=== PATIENT | male | born 1965 | race Caucasian/White ===

== ENCOUNTER → 2018-01-08 11:32 | Outpatient (CLI) | payer BC, SELFPAY ==
--- NOTE | 2018-01-08 11:36 | CA_ITS ---
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 Left atrium is mildly enlarged, left ventricle is normal size, there is mild qualitative concentric left ventricular hypertrophy, visually estimated ejection fraction 50% with no regional wall motion abnormality. 2. The right atrium and right ventricle are normal size and contractility. 3. The aortic valve is minimally thickened and fibrosed. 4. The mitral and tricuspid valvular grossly normal. 5. The pulmonic valve is poorly present. 6. No significant pericardial effusion noted. DOPPLER INTERROGATION: Doppler interrogation of the aortic, mitral and tricuspid valvular presence of mild mitral and tricuspid regurgitation, tricuspid regurgitation jet velocity is inadequate for calculation of the right ventricular systolic pressure, grade 1 diastolic dysfunction seen without tissue Doppler evidence of raised left atrial pressure. CONCLUSION: 1. Normal left ventricular size, mild concentric left ventricular hypertrophy, visually estimated ejection fraction 50% with no regional wall motion abnormality, grade 1 diastolic dysfunction seen without tissue Doppler evidence of raised left atrial pressure. 2. Mild mitral and tricuspid regurgitation 3. No significant pericardial effusion noted.
== END ==
PROVIDERS: PCP Nurse Practitioner; Visit Provider Internal Medicine Cardiovascular Disease
DX: R06.00 Dyspnea, unspecified (principal); R07.9 Chest pain, unspecified
CPT/HCPCS: 93306

== ENCOUNTER → 2018-01-09 10:45 | Outpatient (CLI) | payer BC, SELFPAY ==
--- NOTE | 2018-01-09 10:48 | NM_ITS ---
History and Indications: Chest pain Procedure: Patient exercised on Antolin protocol 9 minutes, resting heart rate was 59 bpm resting blood pressure 156/91, with exercise maximum heart rate achieved was 1 51 bpm which is greater than 85% of the maximum predicted heart rate and a blood pressure was 190/80. Test was stopped due to shortness of breath patient denied any complained of chest pain. Patient has good exercise capacity achieved 10.1METS of workload on treadmill, the blood pressure response to exercise was adequate. Electrocardiogram: Resting electrocardiogram showed sinus rhythm possible inferior infarct age indeterminate, with exercise there is less than 1.5 ST segment depression noted from the baseline EKG. The EKG portion of the exercise Myoview is nondiagnostic due to baseline abnormal EKG. Cardiac stress and resting SPECT images: Cardiac stress and rest SPECT images were obtained using Tc 99 Myoview 30.7 mCi stress and 10.4 mCi at rest. Gated SPECT further analysis of segmental wall motion and calculation of the ejection fraction also done. Cardiac stress and rest images show a fixed defect involving the inferior wall with reduced contractility, there is likely secondary to prior myocardial scarring, computer derived ejection fraction 50% moderate inferior wall hypokinesis. Right ventricle is normal size and contractility. Conclusion: 1. The EKG portion of the exercise Myoview is nondiagnostic secondary to baseline abnormal EKG, patient has good exercise capacity achieved 10.1mets of workload on treadmill, the blood pressure response to exercise was adequate, test was started due to shortness of breath. 2. Scintigraphic evidence of myocardial scarring involving the inferior wall, computer derived ejection fraction is 50% with segmental wall motion abnormality described above, right ventricle is normal size and contractility. 3. Abnormal exercise Myoview study.
== END ==
PROVIDERS: Family Provider Family Medicine; PCP Nurse Practitioner; Visit Provider Internal Medicine
DX: R06.00 Dyspnea, unspecified (principal); R07.9 Chest pain, unspecified
CPT/HCPCS: 78452; 93017; A9502

== ENCOUNTER 2023-07-08 19:40 | Emergency (ER) | payer BC, SELFPAY ==
--- NOTE | 2023-07-08 | ECG_ITS ---
APPROVED REPORT Exam: Resting ECG HR:67 bpm ECG Measurements Heart Rate 67 AXES WY 147 P 71 QRSd 108 QRS 64 QT 379 T 24 QTc 395 Conclusion SINUS RHYTHM BORDERLINE ECG UNCONFIRMED REPORT Electronically signed by : Jerel Hadley, 07/08/2023 22:21:33
--- NOTE | 2023-07-08 19:49 | ED_ITS ---
<Statement entered by Graeme Hadley MD - 07/08/23 22:20> I was consulted by the PAUL, and we discussed the complexity of the problems being addressed. I approved the treatment and management plan for this patient's care in the emergency department, thus performing a substantive portion of the medical decision making. Graeme Hadley MD, MAGED, FACEP Discharge Plan Disposition Patient Disposition: Home, Self-Care Condition: Good Prescriptions Prescriptions: No Action No Known Home Medications Referrals Follow up/Referrals: Jermain Carlisle MD [Staff Physician] - See instructions Garth Shaw MD [Staff Physician] - See instructions Clinical Impressions Clinical Impression: Chest pain Discharge ED Provider: Graeme Hadley General Adult HPI General Chief complaint: Chest Pain Stated complaint: Chest pain Time Seen by Provider: 07/08/23 19:49 History of Present Illness HPI narrative: Patient presents for 24 to 36 hours of left chest pain along with associated paresthesia of the sensation of numbness and cold and both his left upper and lower extremity. Patient denies any provoking event. Patient denies altered sensorium nausea vomiting diarrhea indigestion fever chills hemoptysis hematochezia melena neck pain headache. Patient reports that his symptoms are somewhat worse with deep breathing but no relieving factors. Patient does have a history of a previous heart cath that showed a scar on chemical stress test however cardiac cath and echo did not find any abnormalities. Related Data Home Medications Medication Instructions Recorded Confirmed No Known Home Medications 07/08/23 07/08/23 Allergies Allergy/AdvReac Type Severity Reaction Status Date / Time No Known Allergies Allergy Verified 01/08/18 10:27 [facility] Disclaimer: The information contained in this section may have been updated after the patient was seen, as this information can be updated by other users. Social History Smoking Status: Unknown if ever smoked second hand exposure: No alcohol intake: current substance use type: denies use current occupational status: employed Travel in the last 8 weeks: None household members: none housing: house current occupational exposures/hazards: Yes ROS Obtained: Yes Systems reviewed as appropriate & no additional complaints except as documented Physical Exam General General appearance: alert and in no apparent distress Head Head exam: atraumatic and normocephalic Eye Eye exam: Present normal appearance, PERRL and EOMI ENT ENT exam: Present normal exam and normal oropharynx Neck Neck exam: Present normal inspection, full ROM and trachea midline; Absent tenderness or lymphadenopathy Chest Chest inspection: Present normal inspection and symmetric chest wall rise; Absent tenderness Respiratory Respiratory exam: Present normal lung sounds bilaterally; Absent respiratory distress, wheezes or accessory muscle use Cardiovascular Cardiovascular exam: Present regular rate, normal rhythm, normal heart sounds, +S1 and +S2 Abdominal Exam Abdominal exam: Present soft; Absent tenderness, guarding, rebound or rigidity Extremities Exam Extremities exam: Present normal inspection and full ROM; Absent tenderness Back Exam Back exam: Present normal inspection and full ROM; Absent tenderness Neurological Exam Neurological exam: Present alert, oriented X3, CN II-XII intact, normal gait and reflexes normal; Absent motor sensory deficit Psychiatric Psychiatric exam: Present normal affect and normal mood Skin Skin exam: Present warm, dry and intact Medical Decision Making Medical Records Medical records reviewed: Yes I reviewed the patient's medical records. Ismael Inquiry Pt receiving controlled substance: No Vital Signs: 07/08/23 19:50 07/08/23 20:00 07/08/23 20:44 Temperature 98.2 F Temperature Source Oral Pulse Rate 66 73 Pulse Rate [Right Brachial] 73 Respiratory Rate 17 18 Blood Pressure 160/97 H Blood Pressure [Right Arm] 177/103 H Blood Pressure Mean 129 Blood Pressure Mean [Right Arm] 127 Blood Pressure Source [Right Arm] Automatic Cuff Blood Pressure Position [Right Arm] Sitting 02 Sat by Pulse Oximetry 98 97 Oxygen Delivery Method Room Air Room Air 07/08/23 20:49 07/08/23 21:00 Temperature Temperature Source Pulse Rate 73 67 Pulse Rate [Right Brachial] Respiratory Rate 15 16 Blood Pressure 162/89 H 145/89 H Blood Pressure [Right Arm] Blood Pressure Mean 115 107 Blood Pressure Mean [Right Arm] Blood Pressure Source [Right Arm] Blood Pressure Position [Right Arm] 02 Sat by Pulse Oximetry 99 99 Oxygen Delivery Method Room Air Room Air Lab Data Lab results reviewed: Yes I reviewed the patient's lab results. Lab Results 07/08/23 19:40: WBC 5.6, RBC 4.93, Hgb 14.7, Hct 44.9, MCV 91.1, MCH 29.8, MCHC 32.7, RDW 13.5, Plt Count 196, MPV 9.1, Neut % (Auto) 49.2, Lymph % (Auto) 39.7, [place] % (Auto) 6.8, Eos % (Auto) 3.1, Baso % (Auto) 1.2, Neut # (Auto) 2.7, Lymph # (Auto) 2.2, [place] # (Auto) 0.4, Eos # (Auto) 0.2, Baso # (Auto) 0.1, PT 11.1, INR 1.03, D-Dimer 0.30, Sodium 141, Potassium 3.6, Chloride 108 H, Carbon Dioxide 28, Anion Gap 8.6, BUN 12, Creatinine 0.90, Estimated Creat Clear 161, Estimated GFR 88, Est GFR ( Amer) 106, Glucose 105 H, Calcium 9.3, Magnesium 1.8, Total Bilirubin 0.3, AST 33, ALT 27, Alkaline Phosphatase 78, Troponin I < 0.01, NT-Pro-B Natriuret Pep 72.1, Total Protein 6.9, Albumin 4.3, Globulin 2.6, Albumin/Globulin Ratio 1.7, TSH 7.61 H 07/08/23 19:40 07/08/23 19:40 Orders (Tests/Meds): ED MEDICATIONS Generic Name Dose Route Start Last Admin Trade Name Freq PRN Reason Stop Dose Admin Sodium Chloride 10 ml 07/08/23 21:37 Sodium Chloride 0.9% 10ml Vial IV 08/07/23 21:36 NEEDED PRN to Dilute Lorazepam inj Discontinued Medications Generic Name Dose Route Start Last Admin Trade Name Freq PRN Reason Stop Dose Admin Aspirin 324 mg 07/08/23 19:57 07/08/23 20:08 Aspirin 81mg Chewable Tablet PO 07/08/23 19:58 324 mg ONCE ONE Administration Diphenhydramine HCl 50 mg 07/08/23 21:37 07/08/23 21:46 Diphenhydramine 50mg/Ml Vial IV 07/08/23 21:38 50 mg ONCE ONE Administration Iopamidol 180 ml 07/08/23 20:50 07/08/23 20:51 Iopamidol-370 (76%);100ml Bottle IV 07/08/23 20:51 180 ml ONCE ONE Administration Lorazepam 0.5 mg 07/08/23 21:37 07/08/23 21:46 Lorazepam 2mg/Ml Vial IV 07/08/23 21:38 0.5 mg ONCE ONE Administration Sodium Chloride 10 ml 07/08/23 20:50 07/08/23 20:51 Sodium Chloride 0.9% 10ml Syr (Rad Only) IV 07/08/23 20:51 10 ml ONCE ONE Administration ORDERS Category Date Time Status CT angio chest - dissection Stat Cat Scan 07/08/23 19:[address] angio head Stat Cat Scan 07/08/23 19:[address] angio neck Stat Cat Scan 07/08/23 19:[address] head/brain wo con Stat Cat Scan 07/08/23 19:49 Completed Chest XR -- portable [XR chest portable] Stat Exams 07/08/23 19:57 Completed POCUS Point of Care (ER Only) Stat Exams 07/08/23 19:49 Taken BNP [NT Pro Brain Natriuretic Pep.] Stat Lab 07/08/23 19:40 Completed CBC w/Auto Diff [Complete Blood Count Auto Diff] Stat Lab 07/08/23 19:40 Completed CMP [Comprehensive Metabolic Panel] Stat Lab 07/08/23 19:40 Completed D-Dimer Stat Lab 07/08/23 19:40 Completed INR [Prothrombin Time INR] Stat Lab 07/08/23 19:40 Completed Lactic Acid Stat Lab 07/08/23 19:58 Ordered Magnesium Stat Lab 07/08/23 19:40 Completed Rapid PCR Covid and Flu A/B Stat Lab 07/08/23 19:58 Ordered TSH [Thyroid Stimulating Hormone] Stat Lab 07/08/23 19:40 Completed Trop I [Troponin I] Stat Lab 07/08/23 19:40 Completed Troponin I Q3H Lab 07/08/23 23:00 Ordered Troponin I Q3H Lab 07/09/23 02:00 Ordered UA [Urinalysis and Microscopic] Stat Lab 07/08/23 19:58 Ordered HEART Score History (anamnesis): Moderately suspicious ECG: Non-specific disturbance Age: 45-65 years Risk factors: 1-2 risk factors Troponin: </= normal limit HEART Score: 4 Medical Decision Narrative: In summary patient is a 57-year-old male who presents to the emergency department for evaluation of chest pain and left-sided paresthesia. Patient is hypertensive slightly tachycardic upon arrival, but afebrile satting at greater than 94% on room air.. Physical exam is unremarkable and objectively his sensory exam is normal. Peripheral pulses are normal.. Differential diagnosis includes ACS versus aortic dissection versus other cardiovascular event versus stroke versus spinal stenosis etc. Initial workup will be conducted with hematologic labs, twelve-lead EKG, plain film chest x-ray, CT without contrast of the head and CTA of the head and neck and chest. Initial interventions include Toradol Tylenol and chewable aspirin. Initial workup reviewed by me shows that his hematologic labs are nonactionable including a undetectable troponin. My informal review of his imaging shows no acute processes. EKG from today does show evidence of previous [place] with Q waves and that is different from his last available EKG which was done in 2018 which was normal. Upon repeat evaluation patient does report some improvement subjectively of his chest pain however the cold sensation that he is experiencing is still occurring intermittently.. Given this appropriate discharge with close follow-up with cardiology. Patient verbalized understanding and agreement. Critical Care Critical Care Time Critical Care Time: No Total Time Total Critical Care Time: 30
--- NOTE | 2023-07-08 19:49 | CT_ITS ---
PROCEDURE INFORMATION: Exam: CTA Chest With Contrast Exam date and time: 07/08/2023 8:39 PM Age: 57 years old Clinical indication: Pain; Chest pressure; Additional info: Chest pain, paresthesia TECHNIQUE: Imaging protocol: Computed tomographic angiography of the chest with contrast. Exam focused on the arteries. 3D rendering (Not supervised by radiologist): MIP and/or 3D reconstructed images were created by the technologist. Total images: 373 Radiation optimization: All CT scans at this facility use at least one of these dose optimization techniques: automated exposure control; mA and/or kV adjustment per patient size (includes targeted exams where dose is matched to clinical indication); or iterative reconstruction. Contrast material: ISOVUE; Contrast volume: 90 ml; Contrast route: INTRAVENOUS (IV); COMPARISON: CR XR CHEST PORTABLE 07/08/2023 8:38 PM FINDINGS: Pulmonary arteries: Adequate contrast opacification of the pulmonary arteries. Cardiac pulsation artifact within the pulmonary outflow tract. Mild limitations imposed by respiratory motion. No convincing evidence for main or segmental pulmonary emboli. Distal branch evaluation limited.. Aorta: No thoracic aortic aneurysm, dissection, or traumatic injury. Cardiac pulsation artifact in the ascending aorta. Lungs: Trachea and main bronchi are patent. Densely calcified left upper lobe granuloma. Lungs are clear and adequately expanded. No concerning infiltrate or airspace consolidation. 4 mm juxtapleural nodule right minor fissure, axial image 38. Additional 3 mm juxtapleural right lower lobe nodule, axial image 42. Pleural spaces: Unremarkable. No pneumothorax. No pleural effusion. Heart: Normal heart size. 3.8 x 2.0 x 4.4 cm left pericardial cyst. No pericardial effusion. Coronary arteries: No significant coronary artery calcifications. Mediastinal space: Mediastinal lipomatosis. No mediastinal mass or hematoma. Lymph nodes: No mediastinal or hilar lymphadenopathy. Calcified left hilar lymph node. Spleen: Calcified splenic granuloma. Intraperitoneal space: No acute process in the upper abdomen. Bones/joints: Moderate degenerative changes mid lower thoracic spine. Minor loss vertebral body height at T11 either remote or developmental. Soft tissues: Unremarkable. IMPRESSION: 1. No acute intrathoracic process. Specifically, no acute main or proximal segmental pulmonary emboli. 2. Remote calcified granulomatous disease. 3. Left pericardial cyst. 4. Noncalcified juxtapleural micronodules right lung. Recommend follow-up CT Chest in 6-12 months. (References: Jose) REFERENCES: 1. Gerardo Jasmine, et al. Guidelines for Management of Incidental Pulmonary Nodules Detected on CT Images: From the Fleischner Society 2017. Radiology. 2017;284(1):228-243. 2. Macy Bedolla, et al. Updated Fleischner Society Guidelines for Managing Incidental Pulmonary Nodules: Common Questions and Challenging Scenarios. Radiographics. 2018;38(5):2677-9588.
--- NOTE | 2023-07-08 19:49 | CT_ITS ---
PROCEDURE INFORMATION: Exam: CTA Head With Contrast, Arteriography Exam date and time: 07/08/2023 8:34 PM Age: 57 years old Clinical indication: Other: Paresthesia left side; Additional info: Chest pain, paresthesia TECHNIQUE: Imaging protocol: Computed tomographic angiography of the head with contrast. Exam focused on the arteries. 3D rendering (Not supervised by radiologist): MIP and/or 3D reconstructed images were created by the technologist. Radiation optimization: All CT scans at this facility use at least one of these dose optimization techniques: automated exposure control; mA and/or kV adjustment per patient size (includes targeted exams where dose is matched to clinical indication); or iterative reconstruction. Contrast material: ISOVUE; Contrast volume: 90 ml; Contrast route: INTRAVENOUS (IV); COMPARISON: CT HEAD/BRAIN WO CON 07/08/2023 8:34 PM FINDINGS: ANTERIOR CIRCULATION: Right internal carotid artery: Intracranial segment is patent with no significant stenosis. No aneurysm. Right middle cerebral artery: No occlusion or significant stenosis. No aneurysm. Right anterior cerebral artery: No occlusion or significant stenosis. No aneurysm. Left internal carotid artery: Intracranial segment is patent with no significant stenosis. No aneurysm. Left middle cerebral artery: No occlusion or significant stenosis. No aneurysm. Left anterior cerebral artery: No occlusion or significant stenosis. No aneurysm. POSTERIOR CIRCULATION: Right vertebral artery: No occlusion or significant stenosis. No aneurysm. Left vertebral artery: No occlusion or significant stenosis. No aneurysm. Basilar artery: No occlusion or significant stenosis. No aneurysm. Right posterior cerebral artery: origin. No occlusion or significant stenosis. No aneurysm. Left posterior cerebral artery: No occlusion or significant stenosis. No aneurysm. Brain: No definite mass, mass effect, or midline shift. Cerebral ventricles: No ventriculomegaly. Bones/joints: Unremarkable. No acute fracture. Soft tissues: Unremarkable. IMPRESSION: No large vessel stenosis or occlusion.
--- NOTE | 2023-07-08 19:49 | CT_ITS ---
PROCEDURE INFORMATION: Exam: CT Head Without Contrast Exam date and time: 07/08/2023 8:34 PM Age: 57 years old Clinical indication: Other: Paresthesia left side; Additional info: Chest pain, paresthesia TECHNIQUE: Imaging protocol: Computed tomography of the head without contrast. Radiation optimization: All CT scans at this facility use at least one of these dose optimization techniques: automated exposure control; mA and/or kV adjustment per patient size (includes targeted exams where dose is matched to clinical indication); or iterative reconstruction. COMPARISON: CT ANGIO HEAD 07/08/2023 8:34 PM FINDINGS: Brain: No acute intracranial hemorrhage, midline shift or mass effect. Cerebral ventricles: No ventriculomegaly. Paranasal sinuses: Bilateral maxillary sinus mucosal thickening. No fluid levels. Mastoid air cells: Visualized mastoid air cells are well aerated. Bones/joints: Unremarkable. No acute fracture. Soft tissues: Unremarkable. IMPRESSION: No acute intracranial findings.
[2023-07-08 19:50] VITALS: BP 177/103; PULSE 73; RESP 17; TEMP 36.8; O2SAT 98; BMI 34.7
--- NOTE | 2023-07-08 19:51 | CT_ITS ---
PROCEDURE INFORMATION: Exam: CTA Neck With Contrast Exam date and time: 07/08/2023 8:34 PM Age: 57 years old Clinical indication: Other: Paresthesia left side; Additional info: Chest pain, paresthesia TECHNIQUE: Imaging protocol: Computed tomographic angiography of the neck with contrast. Exam focused on the cervical segments of the vasculature. 3D rendering (Not supervised by radiologist): MIP and/or 3D reconstructed images were created by the technologist. Radiation optimization: All CT scans at this facility use at least one of these dose optimization techniques: automated exposure control; mA and/or kV adjustment per patient size (includes targeted exams where dose is matched to clinical indication); or iterative reconstruction. Contrast material: ISOVUE; Contrast volume: 90 ml; Contrast route: INTRAVENOUS (IV); COMPARISON: CT ANGIO HEAD 07/08/2023 8:34 PM FINDINGS: Right common carotid artery: No stenosis. No dissection or occlusion. Right internal carotid artery: No stenosis of the extracranial segment. No dissection or occlusion. Right external carotid artery: No occlusion or stenosis of the origin. Left common carotid artery: No stenosis. No dissection or occlusion. Left internal carotid artery: Mild atherosclerotic narrowing of the proximal extracranial segment. No dissection or occlusion. Left external carotid artery: No occlusion or stenosis of the origin. Right vertebral artery: No stenosis. No dissection or occlusion. Left vertebral artery: No stenosis. No dissection or occlusion. Soft tissues: Normal. No significant soft tissue swelling. Bones/joints: No acute fracture. Lungs: 7.5 mm left upper lobe calcified granuloma. IMPRESSION: Mild less than 50% stenosis of the left proximal internal carotid artery. REFERENCES: NASCET CRITERIA. The degree of stenosis in the cervical segment of the internal carotid artery is based on NASCET criteria. Normal is no stenosis. Mild is less than 50% stenosis. Moderate is 50-69% stenosis. Severe is 70% to 99% stenosis. Total occlusion is no detectable patent lumen.
--- NOTE | 2023-07-08 19:57 | XR_ITS ---
PROCEDURE INFORMATION: Exam: XR Chest Exam date and time: 07/08/2023 8:38 PM Age: 57 years old Clinical indication: Pain; Chest pressure; Additional info: Chest pain, paresthesia TECHNIQUE: Imaging protocol: Radiologic exam of the chest. Views: 1 view. Total images: 1 COMPARISON: CT ANGIO NECK 07/08/2023 8:34 PM FINDINGS: Tubes, catheters and devices: EKG leads are present. Lungs: Unremarkable. No consolidation. No pulmonary vascular congestion or edema. Pleural spaces: Unremarkable. No pleural effusion. No pneumothorax. Heart/Mediastinum: Prominent cardiac silhouette likely magnified by portable AP technique. No mediastinal widening. Bones/joints: Unremarkable. Other findings: Lordotic positioning. IMPRESSION: No radiographically acute cardiopulmonary process.
[2023-07-08 20:00] VITALS: BP 160/97; PULSE 66; RESP 18; O2SAT 97
[2023-07-08] MEDS: ASPIRIN 81MG CHEWABLE TABLET 324 MG PO (20:08)
[2023-07-08 20:11] LABS: Basophils # 0.1 K/mm3 (0-0.2); Basophils % 1.2 % (0.1-2.0); Eosinophils # 0.2 K/mm3 (0.0-0.4); Eosinophils % 3.1 % (0.1-12.0); Hematocrit 44.9 % (42.0-52.0); Hemoglobin 14.7 g/dL (14.1-18.0); Lymphocytes # 2.2 K/mm3 (0.7-4.5); Lymphocytes % 39.7 % (10-50); Mean Corpuscular HGB Conc 32.7 g/dL (31.8-35.4); Mean Corpuscular Hemoglobin 29.8 pg (27.0-31.2); Mean Corpuscular Volume 91.1 fl (80-94); Mean Platelet Volume 9.1 fl (7.4-10.4); Monocytes # 0.4 K/mm3 (0.1-1.0); Monocytes % 6.8 % (1.7-9.3); Neutrophils # 2.7 K/mm3 (1.8-7.8); Neutrophils % 49.2 % (37.0-80.0); Platelet Count 196 K/mm3 (142-424); Red Blood Count 4.93 M/mm3 (4.60-6.20); Red Cell Distribution Width 13.5 % (11.5-17.5); White Blood Count 5.6 K/mm3 (4.8-10.8)
--- NOTE | 2023-07-08 20:11 | PC.NURSE ---
Pt assisted to bathroom at this time
[2023-07-08 20:14] LABS: Alanine Aminotransferase 27 U/L (12-78); Albumin Level 4.3 g/dl (3.5-5.0); Albumin/Globulin Ratio 1.7 (1.1-1.8); Alkaline Phosphatase 78 U/L (38-126); Anion Gap 8.6 mEq/L (5-15); Aspartate Amino Transferase 33 U/L (17-59); Bilirubin,Total 0.3 mg/dl (0.2-1.3); Blood Urea Nitrogen 12 mg/dl (9-20); Calcium 9.3 mg/dl (8.4-10.2); Carbon Dioxide 28 mmol/L (22.0-30.0); Chloride 108 mmol/L (98-107); Creatinine Clearance Estimated 161 mL/min (50-200); Estimated Glomerular Filt Rate 88 ml/min (>60); GFR (African American) 106 ML/MIN (>60); Globulin 2.6 g/dL (1.3-3.2); Glucose 105 mg/dl (74-100); Magnesium 1.8 mg/dl (1.6-2.3); Potassium 3.6 mmoL/L (3.5-5.1); Sodium 141 mmol/L (136-145); Total Protein,Serum 6.9 g/dl (6.3-8.2)
[2023-07-08 20:19] LABS: INR 1.03 (0.9-1.1); Prothrombin Time 11.1 seconds (10.1-12.5)
[2023-07-08 20:27] LABS: NT Pro Brain Natriuretic Pep. 72.1 pg/mL (0-125)
[2023-07-08 20:30] LABS: Troponin I < 0.01 ng/ml (0.00-0.034)
[2023-07-08 20:44] VITALS: PULSE 73
[2023-07-08 20:45] LABS: Thyroid Stimulating Hormone 7.61 uIU/mL (0.465-4.68)
[2023-07-08 20:49] VITALS: BP 162/89; PULSE 73; RESP 15; O2SAT 99
[2023-07-08] MEDS: SODIUM CHLORIDE 0.9% 10ML SYR (RAD ONLY) 10 ML IV (20:51)
[2023-07-08] MEDS: IOPAMIDOL-370 (76%);100ML BOTTLE 180 ML IV (20:51)
[2023-07-08 21:00] VITALS: BP 145/89; PULSE 67; RESP 16; O2SAT 99
--- NOTE | 2023-07-08 21:16 | PC.NURSE ---
Pt refuses the Covid swab, Don aware
[2023-07-08] MEDS: LORazepam 2MG/ML VIAL 0.5 MG IV (21:46)
[2023-07-08] MEDS: diphenhydrAMINE 50MG/ML VIAL 50 MG IV (21:46)
[2023-07-08 22:13] VITALS: BP 152/94; PULSE 77; RESP 15; TEMP 36.7; O2SAT 97
[2023-07-08 22:13] LABS: Lactic Acid 1.1 mmol/L (0.7-2.1)
--- NOTE | 2023-07-09 03:27 | PC.NURSE ---
reviewed patient's lactic acid 1.1. no new orders needed. will complete the notification on the list
== END 2023-07-08 22:15 | disposition home or self-care (01) ==
PROVIDERS: Physician Assistant; Emergency Provider Student in an Organized Health Care Education/Training Program; PCP Family Medicine
DX: R07.9 Chest pain, unspecified (principal); R07.1 Chest pain on breathing
CPT/HCPCS: 70450; 70496; 70498; 71045; 71275; 80053; 83605; 83735; 83880; 84443; 84484; 85025; 85378; 85610; 93005; 96374; 96375; 99285; Q9967

== ENCOUNTER 2023-07-15 14:22 | Outpatient (CLI) | payer BC, SELFPAY ==
[2023-07-15 15:03] LABS: Basophils % 0.6 % (0.1-2.0); Eosinophils # 0.1 K/mm3 (0.0-0.4); Eosinophils % 1.6 % (0.1-12.0); Hematocrit 44.6 % (42.0-52.0); Hemoglobin 14.8 g/dL (14.1-18.0); Lymphocytes % 31.8 % (10-50); Mean Corpuscular HGB Conc 33.2 g/dL (31.8-35.4); Mean Corpuscular Volume 90.5 fl (80-94); Mean Platelet Volume 8.7 fl (7.4-10.4); Monocytes # 0.4 K/mm3 (0.1-1.0); Monocytes % 6.4 % (1.7-9.3); Neutrophils # 3.8 K/mm3 (1.8-7.8); Neutrophils % 59.6 % (37.0-80.0); Platelet Count 191 K/mm3 (142-424); Red Blood Count 4.93 M/mm3 (4.60-6.20); Red Cell Distribution Width 13.6 % (11.5-17.5); White Blood Count 6.4 K/mm3 (4.8-10.8)
[2023-07-15 15:23] LABS: Alanine Aminotransferase 26 U/L (12-78); Albumin Level 4.5 g/dl (3.5-5.0); Alkaline Phosphatase 85 U/L (38-126); Anion Gap 11.4 mEq/L (5-15); Aspartate Amino Transferase 28 U/L (17-59); Bilirubin,Direct 0.1 mg/dl (0.0-0.4); Bilirubin,Indirect 0.5 mg/dL (0.0-0.9); Bilirubin,Total 0.6 mg/dl (0.2-1.3); Bilirubin,Unconjugated 0.5 mg/dL (0.0-1.1); Blood Urea Nitrogen 17 mg/dl (9-20); Calcium 9.9 mg/dl (8.4-10.2); Carbon Dioxide 27 mmol/L (22.0-30.0); Chloride 109 mmol/L (98-107); Chol/HDL Ratio 3.5 (1-3.5); Cholesterol 245 mg/dl (140-200); Estimated Glomerular Filt Rate 69 ml/min (>60); GFR (African American) 84 ML/MIN (>60); Glucose 95 mg/dl (74-100); HDL Cholesterol 70 mg/dl (40-60); Potassium 4.4 mmoL/L (3.5-5.1); Sodium 143 mmol/L (136-145); Triglycerides 134 mg/dl (30-150); VLDL Cholesterol 27 mg/dL (0-40)
[2023-07-15 15:34] LABS: Direct LDL Cholesterol 136.74 mg/dL (100-129)
[2023-07-15 15:39] LABS: Free T4 (Free Thyroxine) 0.84 ng/dl (0.78-2.19)
[2023-07-15 15:55] LABS: T4 (Thyroxine) 5.3 ug/dl (5.53-11.0)
[2023-07-15 16:08] LABS: Thyroid Stimulating Hormone 5.82 uIU/mL (0.465-4.68)
[2023-07-16 05:48] LABS: Triiodothryronine (T3) Uptake 38 % (23.5-40.5)
[2023-07-16 10:31] LABS: Thyroid Peroxidase Antibodies 200 IU/mL (0-34); Triiodothyronine (T3) Free 2.5 pg/mL (2.0-4.4)
[2023-07-17 10:09] LABS: Thyroglobulin IMA CHARGE YES; Thyroglobulin Level <1.0 IU/mL (0.0-0.9)
[2023-07-17 18:05] LABS: Thyroid Stimulating Immunoglob <0.10 IU/L (0.00-0.55)
[2023-07-20 10:32] LABS: Triiodothyronine (T3) Reverse 17.2
== END 2023-07-15 23:59 | disposition home or self-care (01) ==
LOC: LAB 14:23
PROVIDERS: PCP Family Medicine; Visit Provider Internal Medicine
DX: R06.00 Dyspnea, unspecified (principal); R07.9 Chest pain, unspecified; R94.31 Abnormal electrocardiogram [ECG] [EKG]; R20.0 Anesthesia of skin; R94.6 Abnormal results of thyroid function studies
CPT/HCPCS: 36415; 80048; 80061; 80076; 84436; 84439; 84443; 84445; 84479; 84481; 84482; 85025; 86376; 86800

== ENCOUNTER 2023-07-22 13:29 | Outpatient (CLI) | payer BC, SELFPAY ==
--- NOTE | 2023-07-22 13:29 | US_ITS ---
FINAL REPORT CLINICAL HISTORY: cp/dyspnea/abnl ecg/left side numbness FINDINGS: THYROID ULTRASOUND: The thyroid gland is diffusely heterogeneous. The right lobe of the thyroid measures 4.6 x 1.9 x 1.4 cm in size. There are multiple nodules present in the right lobe of the thyroid, the largest a 7 mm right hypoechoic solid complex nodule consistent with a TI-RADS 4 category nodule. An adjacent nodule is a TI-RADS 3 category nodule. All of the nodules in the right lobe of the thyroid are equal to or less than 7 mm in size. The left lobe of the thyroid gland measures 4.7 x 1.9 x 1.6 cm in size. The left lobe of the thyroid is also heterogeneous, but no focal nodules are identified. The isthmus of the thyroid measures 5.5 mm in thickness. IMPRESSION: Multiple right-sided thyroid nodules as described above, TI-RADS category 3 and 4 nodules. By TI-RADS criteria, no follow-up is recommended at this time secondary to size. The thyroid gland is generally heterogeneous throughout. Reviewed, Interpreted and Dictated by Nolan Perez MD Transcribed by Malina Menjivar Authenticated and [facility]
== END 2023-07-22 23:59 | disposition home or self-care (01) ==
LOC: RAD 13:29
PROVIDERS: PCP Family Medicine; Visit Provider Internal Medicine
DX: E04.1 Nontoxic single thyroid nodule (principal); R07.9 Chest pain, unspecified; R94.31 Abnormal electrocardiogram [ECG] [EKG]; R20.0 Anesthesia of skin; R06.00 Dyspnea, unspecified
CPT/HCPCS: 76536

== ENCOUNTER 2023-07-28 10:54 | Outpatient (CLI) | payer BC, SELFPAY ==
--- NOTE | 2023-07-28 10:54 | NM_ITS ---
APPROVED REPORT Exam: Nuclear Stress Test Indication: FM PELON C.PTigist, SOB Patient Location: Outpatient Stress Tech: Evelyn Mustafa NM Tech:Marguerite Sorto, ARRT, RT (R)(N) Ht: 6 ft 2 in Wt: 270 lbs HR: 68 bpm BP: 124/82 mmHg BSA: 2.47 m2 TID: 1.27 BMI: 34.6 History: Mary PAYNEPTigist, SOB Procedure: Patient received 0.4 mg of intravenous Lexiscan, resting heart rate 68 bpm, resting blood pressure 124/82 mmHg, with Lexiscan maximum heart rate achieved was 105 bpm which is % of the maximum predicted heart rate and blood pressure was 146/89 mmHg. With Lexiscan, patient denied any complaint of chest pain. Cardiac Stress and Resting SPECT Images: Cardiac Stress and Resting SPECT images were obtained using technetium 99m Myoview 30.7 mCi stress and 10.43 mCi at rest. Resting and stress imaging in supine and prone positions demonstrate no definite evidence of focal fixed or reversible perfusion defects. There is increased transient ischemic dilatation ratio (TID 1.27), suggestive of possible multivessel disease or balanced ischemia. Gated imaging demonstrates mild reduction in global LV systolic function. LVEF is calculated at 47%. Conclusion: No definite evidence of focal fixed or reversible perfusion defects. There is increased transient ischemic dilatation ratio (TID 1.27), suggestive of possible multivessel disease or balanced ischemia. Gated imaging demonstrates mild reduction in global LV systolic function. LVEF is calculated at 47%. Electronically signed by : Shirley Álvarez MD 07/29/2023 13:16:18
--- NOTE | 2023-07-28 12:05 | CA_ITS ---
APPROVED REPORT EXAM: Comprehensive 2D, Doppler, and color-flow Echocardiogram Cane Burner: Batool Bonilla RVT Ht: 6 ft 2 in Wt: 273lbs BSA: 2.48 BP: 135/93 mmHg Indications: DYSPENA,CP,ABN EKG TDS-PT BODY HABITUS 2D Dimensions LA Volume 64.60 mL LA Volume Index 26.05 mL/m2 (M/F) 16-34 M-Mode Dimensions RVDd 3.66 cm (0.9-2.6) LA Diam 4.28 cm (1.9-4.0) LVDd 6.00 cm (3.5-5.7) LVDs 3.89 cm (3.5-5.7) IVSd 1.08 cm (0.6-1.1) PWd 0.66 cm (0.6-1.1) EF (Teich) 63.60% FS 35.20% EDV (Teich) 180.00 mL ESV (Teich) 65.50 mL LV Diastology E Decel Time 150 (160-240 msec) E/A Ratio 1.0 Aortic Valve DIONNE Index 2.02 cm2/m2 AoV Peak Binu. 138.0 (50-130 cm/s) AO Peak GR. 7.60 mmHg AO Mean GR. 3.90 (<5 mmHg) AO VTI 28.7 (18-25 cm) DIONNE (VTI) 5.14 (2.5-4.5 cm2) Mitral Valve MV E Max Binu. 89.0 (40-130 cm/s) MV A Velocity 85.0 (40-130 cm/s) E/A Ratio 1.05 MV PHT 44.0 ms Pulmonary Valve PV Peak Velocity 123.0 (50-150 cm/s) Left Ventricle The left ventricle is normal size. The left ventricular systolic function is normal. The left ventricular ejection fraction is within the normal range. There is marked increase in LV wall thickness (IVSd 1.5 cm). There is no increase in LVOT gradient at rest or with Valsalva. There is normal LV segmental wall motion. Transmitral Doppler flow pattern suggests impaired LV relaxation. LVEF is 55%. Right Ventricle The right ventricle is normal size. The right ventricular systolic function is normal. Atria The left atrium size is normal. The right atrium size is normal. There is no Doppler evidence of interatrial shunt. Aortic Valve The aortic valve opens well. There is no aortic valvular stenosis. Trace aortic regurgitation. Mitral Valve The mitral valve is normal in structure. No evidence of systolic anterior motion (CASSI). No evidence of mitral valve stenosis. Trace mitral regurgitation. Tricuspid Valve The tricuspid valve leaflets are thin and pliable. Trace tricuspid regurgitation. There is insufficient TR jet to estimate RVSP. Pulmonic Valve The pulmonary valve is normal in structure. Trace pulmonic regurgitation. Great Vessels The aortic root is normal in size. The ascending aorta is normal in size. IVC is normal in size and collapses >50% with inspiration. Pericardium There is no pericardial effusion. Other Information Study Quality: Fair Conclusion Normal biventricular systolic function. Marked increase in LV wall thickness (IVSd 1.5 cm). There is no increase in LVOT gradient at rest or with Valsalva. No significant valvular stenosis or regurgitation. In the setting of marked increase in LV wall thickness and persistent symptoms, further evaluation with cardiac MRI (HCM protocol) is recommended. Electronically signed by : Shirley Álvarez MD 08/03/2023 14:57:50
[2023-07-28] MEDS: REGADENOSON 0.4MG/5ML SYRINGE 0.400000000000000022 MG IV (13:35)
[2023-07-28] MEDS: ISOTOPE MYOVIEW (PER STUDY) 1 DOSE IV (13:35)
[2023-07-28] MEDS: SODIUM CHLORIDE 0.9% 10ML SYR (RAD ONLY) 10 ML IV ×2 (13:35)
--- NOTE | 2023-07-28 13:55 | CA_ITS ---
APPROVED REPORT Exam: Pharmacologic Technologist: Elisha Kennedy, Ht: 6 ft 2 in Wt: 273 lbs BSA: 2.48 m2 HR: 71 bpm BP: 124/82 mmHg Rhythm: NSR Medical History Medications: Levothyroxine,,,,, Stress Test Details Test: LEXISCAN Reason for pharmacologic stress test: physical limitation. HR Resting HR: 68 bpm Max Heart Rate (APMHR): 165 bpm Max HR Achieved: 105 bpm Target HR (85% APMHR): 140 bpm % of APMHR: 64 Recovery HR: 78 bpm BP Resting BP: 124.0/82.0 mmHg Max BP: 146.0/89.0 mmHg Recovery BP: 144.0/84.0 mmHg ECG Resting ECG: Normal sinus rhythm, T-wave changes in inferior leads Stress ECG: No significant ST changes Arrhythmia: None Clinical Exercise duration: 03:59 min Highest Stage Achieved: Stress ECG Conclusion Symptoms: mild SOB/flushing w/ Lexiscan. No chest pain. Arrhythmias/Ectopy: None ST changes: None Conclusion: Unremarkable Lexiscan stress test. Myoview images reported separately. Test Summary REST . . . . . . . Resting REST 10:21 . . 68 . 124/ 82 . . Stage 1 . . . . . . . Cardiolite injected Stage 1 01:00 . . 105 . . . . Stage 2 01:00 . . 95 . 138/ 83 . . Stage 3 01:00 . . 85 . 138/ 83 . . Stage 4 00:59 . . 81 . 142/ 82 . Stop exercise at 03:59 RECOVERY 01:00 . . 89 . . . . RECOVERY 02:00 . . 87 . 146/ 89 . . RECOVERY 02:27 . . 80 . 144/ 84 . . Electronically signed by : Shirley Álvarez MD 07/29/2023 13:05:03
== END 2023-07-28 23:59 | disposition home or self-care (01) ==
LOC: RAD 10:54
PROVIDERS: PCP Family Medicine; Visit Provider Internal Medicine
DX: R06.00 Dyspnea, unspecified (principal); R07.9 Chest pain, unspecified; R94.31 Abnormal electrocardiogram [ECG] [EKG]; R20.0 Anesthesia of skin
CPT/HCPCS: 78452; 93017; 93018; 93306; A9502; J2785

== ENCOUNTER 2023-08-29 07:12 | Outpatient (CLI) | payer BC, SELFPAY ==
--- NOTE | 2023-08-29 07:13 | CT_ITS ---
APPROVED REPORT Termination Clerk: CLINICAL INDICATION Chest Pain TECHNIQUE Image Acquisition: A 128 slice MDCT scanner (Boutira View) was used for data acquisition. A noncontrast coronary calcium scan was performed. A CT attenuation threshold of 130 Hounsfield units (HU) was used for the detection of calcium in contiguous voxels of 1 sq mm in area to be counted as individual lesions. Bolus tracking in the ascending aorta with a threshold of 180 HU was performed. Immediately afterwards, ECG synchronized cardiac CT was then performed from the cardiac base to apex using retrospective gating with ECG tube current modulation. A total of 85 mL of Isovue 370 mg/mL contrast medium was administered at 5 mL/sec followed by a saline flush using a biphasic injection protocol. A tube voltage of 120 KVp was used. The patient received the following medications prior to the cardiac CT. 50 mg of oral metoprolol 15 mg of oral ivabradine 0.8 mg of sublingual nitroglycerin The average heart rate at the time of acquisition was 58 bpm and regular. Image Reconstruction Transaxial images were reconstructed at 0.67 mm slide thickness. Data was reviewed interactively on an advanced workstation capable of 2 and 3-dimensional displays in all conventional reconstruction formats, including multiplanar reformations, maximum intensity projections, curved multiplanar reformations, and volume rendered reconstructions. When applicable, selected routine images describing the relevant coronary anatomy and pathology were saved and sent to PACS. Complications None Technical Quality Overall image quality was good. Coronary artery opacification was adequate. Total DLP (Dose-Length Product) is 1253.2 mGy-cm. The reported value represents the total of one or more individual components during the CT acquisition of this date and at this time, and as such, the same value may appear in more than one CT report depending on the interpreting/reporting physicians. COMPARISON None FINDINGS CT Coronary Calcium Scoring LMA (Left Main Artery) = 0 LAD (Left Anterior Descending) = 0 LCX (Left Coronary Circumflex) = 0 RCA (Right Coronary Artery) = 0 Total Calcium Score = 0 using the AJ-130 method. The interpretation of the calcium heart score is based on the following continuum*: 0 = no calcified plaque detected (risk of coronary artery disease is very low ??? less than 5%) 1-10 = calcium detected in extremely minimal levels (risk of coronary diseases is still low ??? less than 10%) 11-100 = mild levels of plaque detected with certainty (mild or minimal narrowing of heart arteries is likely) 101-400 = definite,at least moderate levels of plaque detected (relatively high risk of a heart attack within 3-5 years) >401-999 = extensive levels of plaque detected (high risk of heart attack, high levels of vascular disease are present, high likelihood of at least one significant coronary narrowing) *The calcium heart score quantifies the burden of coronary calcification/plaque in the coronary arteries. The calcium heart score is not able to evaluate the presence or burden of non-calcified (i.e. soft) plaque. There is no identifiable calcification in the aortic valve, mitral annulus or mitral valve, pericardium, or myocardium. Coronary CT Angiography The coronary arterial system is right dominant. Quantitative Stenosis Grading: Left Main (LM): The left main originates normally from the left sinus of Valsalva. The LM bifurcates into the left anterior descending artery and left circumflex artery. The LM is patent with no evidence of atherosclerosis. Left Anterior Descending (LAD) and Diagonal Branches: The LAD gives off 2 diagonal branch(es). The LAD and its branches are patent with no evidence of atherosclerosis. There is no evidence of LAD-myocardial bridge. Left Circumflex (LCX) and Obtuse Marginals (OM): The LCX gives off 1 Obtuse Marginal (OM) branch(es). The LCX and its branches are patent with no evidence of atherosclerosis. Right Coronary Artery (RCA): The RCA originates normally from the right sinus of Valsalva. The RCA gives off a posterior descending artery (PDA) and posterolateral (PL) branches. The RCA and its branches are patent with no evidence of atherosclerosis. Non-Coronary Cardiac Findings: Analysis of the left ventricular (LV) structure and function was performed after 3-D reconstruction of the LV from axial images, with user-corrected automatic contouring for assessment of LV volumes and user-defined reconstruction from oblique planes for measurement of 3-D cardiac structure and function. -The left ventricle systolic function is normal. -There is no left atrial appendage filling defect. Two right pulmonary veins and two left pulmonary veins drain normally into the left atrium. -No pericardial thickening or calcification. -Central and branch pulmonary arteries in the [id number] are unremarkable. -Thoracic aorta within the visualized thoracic aortic-branches in the [id number] is unremarkable. Extracardiac Structures No significant extra-cardiac findings. Note, however, that this study is focused on the cardiac findings. IMPRESSION -Absence of coronary calcification with an Agatston score = 0 using the AJ-130 method. -No evidence of significant flow-limiting atherosclerosis of the coronary arteries. -CAD-RADS 0. Management recommendations per ACC/AHA guidelines*, as clinically appropriate. *Recommendations: CAD RADS 0: Reassurance. Consider non-atherosclerotic causes of chest pain. CAD RADS 1: Consider non-atherosclerotic causes of chest pain. Consider preventive therapy and risk factor modification. CAD RADS 2: Consider non-atherosclerotic causes of chest pain. Consider preventive therapy and risk factor modification, particularly for patients with nonobstructive plaque in multiple segments. CAD RADS 3: Consider further functional testing. Consider symptom-guided anti-ischemic and preventive pharmacotherapy as well as risk factor modification per published guideline statements. CAD RADS 4A: Consider further functional testing or invasive coronary angiography with revascularization per published guideline statements. Consider symptom-guided anti-ischemic and preventive pharmacotherapy as well as risk factor modification per published guideline statements. CAD RADS 4B: Invasive coronary angiography recommended with revascularization per published guideline statements. Consider symptom-guided anti-ischemic and preventive pharmacotherapy as well as risk factor modification per published guideline statements. CAD RADS 5: Consider invasive angiography and/or viability assessment with revascularization per published guideline statements. Consider symptom-guided anti-ischemic and preventive pharmacotherapy as well as risk factor modification per published guideline statements. CRITICAL RESULT None COMMUNICATION Per this written report The coronary and cardiac findings of this CCTA were reviewed, reported, and signed by Luis Alfredo Álvarez MD (Floor Covering Printer Assistant) Conclusion Electronically signed by : Shirley Álvarez MD 09/02/2023 16:30:46
[2023-08-29 07:34] VITALS: BMI 34.7
[2023-08-29] MEDS: IVABRADINE HCL 7.5MG TABLET PO (07:51)
[2023-08-29] MEDS: METOPROLOL TARTRATE 50MG TABLET PO (07:52)
[2023-08-29 07:55] LABS: Chloride 107 mmol/L (98-107)
[2023-08-29 07:56] LABS: Potassium 4.7 mmoL/L (3.5-5.1); Sodium 140 mmol/L (136-145)
[2023-08-29 07:58] LABS: Blood Urea Nitrogen 12 mg/dl (9-20); Creatinine Clearance Estimated 143 mL/min (50-200); Estimated Glomerular Filt Rate 77 ml/min (>60); GFR (African American) 94 ML/MIN (>60)
[2023-08-29 07:59] LABS: Anion Gap 10.7 mEq/L (5-15); Calcium 9.3 mg/dl (8.4-10.2); Carbon Dioxide 27 mmol/L (22.0-30.0); Glucose 90 mg/dl (74-100)
[2023-08-29 08:00] VITALS: BP 144/77; PULSE 71; RESP 18; TEMP 36.8; O2SAT 98
[2023-08-29] MEDS: NITROGLYCERIN 0.4MG SL TABLET SL (08:55)
[2023-08-29 08:58] VITALS: BP 131/88; PULSE 67; RESP 18; O2SAT 97
--- NOTE | 2023-08-29 08:58 | PC.NURSE ---
patient entered CT room. placed on monitor. nitroglycerin .8mg given. VS stable
[2023-08-29] MEDS: SODIUM CHLORIDE 0.9% 10ML SYR (RAD ONLY) 10 ML IV (09:00)
[2023-08-29] MEDS: IOPAMIDOL-370 (76%);100ML BOTTLE 85 ML IV (09:00)
[2023-08-29] MEDS: 0.9 % SODIUM CHLORIDE 50 ML VIAL IV (09:00)
[2023-08-29 09:03] VITALS: BP 138/84; PULSE 62; RESP 18; O2SAT 98
--- NOTE | 2023-08-29 09:03 | PC.NURSE ---
VS post nitroglycerin. VS stable
[2023-08-29 09:10] VITALS: BP 131/78; PULSE 58; RESP 18; O2SAT 97
--- NOTE | 2023-08-29 09:18 | PC.NURSE ---
patient returned to room 3 in post op. VS stable
== END 2023-08-29 09:40 | disposition home or self-care (01) ==
PROVIDERS: PCP Nurse Practitioner; Visit Provider Internal Medicine
DX: R06.00 Dyspnea, unspecified (principal); R07.9 Chest pain, unspecified; I51.7 Cardiomegaly; R93.1 Abnormal findings on diagnostic imaging of heart and coronary circulation; E03.8 Other specified hypothyroidism; E06.3 Autoimmune thyroiditis; R20.0 Anesthesia of skin; R94.31 Abnormal electrocardiogram [ECG] [EKG]
CPT/HCPCS: 75574; 80048; Q9967

== ENCOUNTER 2023-09-05 13:06 | Outpatient (CLI) | payer BC, SELFPAY ==
[2023-09-05] MEDS: SODIUM CHLORIDE 0.9% 10ML SYR (RAD ONLY) 10 ML IV (15:21)
[2023-09-05] MEDS: GADOTERIDOL INJ 10ML SYRINGE 7 ML IV (15:22)
[2023-09-05] MEDS: GADOTERIDOL INJ 20ML SYRINGE 20 ML IV (15:22)
[2023-09-05] MEDS: SODIUM CHLORIDE 0.9% 50ML BAG 25 ML IV (15:22)
== END 2023-09-05 23:59 | disposition home or self-care (01) ==
LOC: RAD 13:07
PROVIDERS: PCP Nurse Practitioner; Visit Provider Internal Medicine
DX: R07.9 Chest pain, unspecified (principal); R06.00 Dyspnea, unspecified; I51.7 Cardiomegaly; R94.31 Abnormal electrocardiogram [ECG] [EKG]; R93.1 Abnormal findings on diagnostic imaging of heart and coronary circulation; R20.0 Anesthesia of skin; E03.8 Other specified hypothyroidism; E06.3 Autoimmune thyroiditis
CPT/HCPCS: 75561; A9576

== ENCOUNTER 2024-03-06 09:54 | Emergency (ER) | payer BC, SELFPAY ==
[2024-03-06 10:05] VITALS: BP 120/80; PULSE 107; RESP 20; TEMP 36.9; O2SAT 99; BMI 35.3
--- NOTE | 2024-03-06 10:31 | ED_ITS ---
Discharge Plan Disposition Patient Disposition: Home, Self-Care Condition: Good Prescriptions Prescriptions: New azithromycin 250 mg tablet See Rx Instructions .ROUTE .COMPLEX Qty: 6 0RF Rx Instructions: For 250 mg dose pack: take 500 mg today (day 1), then 250 mg for 4 days (days 2-5) sejnortcxnykijw-laywiwzmc-[id number] [Bromfed DM] 2-30-10 mg/5 mL syrup 10 ml PO Q6H PRN (Reason: cold symptoms) Qty: 200 0RF No Action levothyroxine [Synthroid] 50 mcg tablet 50 mcg PO DAILY Qty: 30 2RF Referrals Follow up/Referrals: Noemi Santos APRN [Primary Care Provider] - See instructions Activity Restrictions/Add. Instructions Additional Instructions/Restrictions: Take medication as prescribed. Increase fluids and rest. If symptoms persist or worsen, return to clinic/PCP. If you become short of air, go to the ER. Clinical Impressions Clinical Impression: Acute lower respiratory infection Instructions Patient Instructions: DI for Viral Upper Respiratory Infection -- Adult, Acute Bronchitis Print Language Print Language: Croatian Discharge ED Provider: Majo Banks [facility] General Stated complaint: congestion, cough Mode of Arrival: Ambulatory Source of Information: Patient Limitations: No Limitations Time Seen by Provider: 03/06/24 10:30 Description of Symptoms (Recalled from Triage Doc. by RN): PATIENT C/O COUGH AND CONGESTION X 1 WEEK HEENT Symptoms (Recalled from RN notes): Yes Resp Symptoms (Recalled from RN notes): Yes Skin Symptoms (Recalled from RN notes): No MS Symptoms (Recalled from RN notes): No Functional Status (Recalled from RN notes): WNL History of Present Illness Provider Complaint: Pt reports that he has been sick for a little over a week. He reports that he has had green sinus drainage and has been coughing so much that he has not been able to sleep at night. He states that his was around his sick grandson prior to becoming ill. Related Data Previous Rx's ?Medication ?Instructions ?Recorded levothyroxine 50 mcg tablet 50 mcg PO DAILY #30 tabs 09/10/23 (Synthroid) azithromycin 250 mg tablet See Rx Instructions PO .COMPLEX #6 03/06/24 tabs upljyfomlohevvj-apwunukkfmkhvru-JV 10 ml PO Q6H PRN cold symptoms 03/06/24 2 mg-30 mg-10 mg/5 mL oral syrup #200 mL (Bromfed DM) Allergies Allergy/AdvReac Type Severity Reaction Status Date / Time No Known Allergies Allergy Verified 09/10/23 14:55 Worker's Comp Is this a Worker's Comp case?: No PFSH [facility] Disclaimer: The information contained in this section may have been updated after the patient was seen, as this information can be updated by other users. Medical History Hypothyroid Abnormal nuclear cardiac imaging test Left sided numbness Abnormal electrocardiogram [ECG] [EKG] Family History Other No significant family history Social History Smoking Status: Unknown if ever smoked second hand exposure: No alcohol intake: current alcohol intake frequency: 0-2 drinks per day substance use type: denies use current occupational status: employed Travel in the last 8 weeks: None household members: none housing: house current occupational exposures/hazards: Yes ROS Obtained: Yes All systems reviewed & no additional complaints except as documented Constitutional Constitutional: Reports system reviewed and no additional complaints, except as documented and Reports malaise Eyes Eyes: Reports system reviewed and no additional complaints, except as documented ENT Ears, Nose, Mouth, and Throat: Reports nasal congestion and Reports nasal discharge Cardiovascular Cardiovascular: Reports system reviewed and no additional complaints, except as documented Respiratory Respiratory: Reports system reviewed and no additional complaints, except as documented and Reports chest congestion Gastrointestinal Gastrointestingal: Reports system reviewed and no additional complaints, except as documented Genitourinary Male Genitourinary: Reports system reviewed and no additional complaints, except as documented Musculoskeletal Musculoskeletal: Reports system reviewed and no additional complaints, except as documented Integumentary/Breasts Skin/Breast: Reports system reviewed and no additional complaints, except as documented Neurologic Neurologic: Reports system reviewed and no additional complaints, except as documented Endocrine Endocrine: Reports system reviewed and no additional complaints, except as documented Hematologic/Lymphatic Henatologic/Lymphatic: Reports system reviewed and no additional complaints, except as documented Allergic/Immunologic Allergic/Immunologic: Reports system reviewed and no additional complaints, except as documented Physical Exam General General appearance: alert and in no apparent distress Head Head exam: atraumatic and normocephalic Eye Eye exam: Present normal appearance Expanded ENT Exam External ear exam: Present normal external inspection Nose exam: Present sinus tenderness (maxillary) Nasal speculum exam: Bilateral: purulent discharge (green drainage) Mouth exam: Present normal external inspection Teeth exam: Present normal inspection Throat exam: Present normal inspection Neck Neck exam: Present normal inspection; Absent lymphadenopathy Chest Chest inspection: Present normal inspection and symmetric chest wall rise Respiratory Respiratory exam: Present other (course sounds throughout) Cardiovascular Cardiovascular exam: Present regular rate and normal rhythm Abdominal Exam Abdominal exam: Present soft exam: Present normal inspection Extremities Exam Extremities exam: Present normal inspection Back Exam Back exam: Present normal inspection Neurological Exam Neurological exam: Present alert and oriented X3 Psychiatric Psychiatric exam: Present normal affect and normal mood Skin Skin exam: Present warm, dry and intact Lymphatic Lymphatic Findings: no adenopathy Medical Decision Making Medical Records Screening: Per USPSTF and CDC recommendations, given the prevalence of disease in our region, it is our hospital?s policy to screen for HIV and viral Hepatitis for all patients aged 18 and over and those with ongoing risk factors. Ismael Inquiry Pt receiving controlled substance: No Ismael was queried for this patient: No Vital Signs: 03/06/24 10:05 Temperature 98.4 F Temperature Source Oral Pulse Rate [Left Brachial] 107 H Respiratory Rate 20 Blood Pressure [Left Arm] 120/80 Blood Pressure Mean [Left Arm] 93 Blood Pressure Source [Left Arm] Automatic Cuff Blood Pressure Position [Left Arm] Sitting 02 Sat by Pulse Oximetry 99 Oxygen Delivery Method Room Air
[2024-03-06] MEDS: DEXAMETHASONE 4MG/ML 1ML VIAL 4 MG IM (10:40)
[2024-03-06 10:55] VITALS: BP 120/80; PULSE 107; RESP 20; TEMP 36.9; O2SAT 99
== END 2024-03-06 10:59 | disposition home or self-care (01) ==
PROVIDERS: Emergency Provider Nurse Practitioner Family; PCP Nurse Practitioner
DX: J22 Unspecified acute lower respiratory infection (principal); R05.9 Cough, unspecified; R09.81 Nasal congestion
CPT/HCPCS: 96372; 99212; G0381; J1100

== ENCOUNTER 2024-09-12 08:25 | Outpatient (CLI) | payer BC, SELFPAY ==
[2024-09-12 20:09] LABS: Lyme Ab IgM CIA ND; Lyme IgG CIA ND
[2024-09-14 13:27] LABS: Lyme Ab CIA Negative (Negative)
== END 2024-09-12 23:59 | disposition home or self-care (01) ==
LOC: LAB.DROPOF 09-13 12:30
PROVIDERS: PCP Student in an Organized Health Care Education/Training Program; Visit Provider Student in an Organized Health Care Education/Training Program
DX: S70.361A Insect bite (nonvenomous), right thigh, initial encounter (principal); R51.9 Headache, unspecified; W57.XXXA Bitten or stung by nonvenomous insect and other nonvenomous arthropods, initial encounter
CPT/HCPCS: 86618